=== PATIENT | male | born 1990 | race Caucasian/White ===

== ENCOUNTER → 2020-12-14 | Outpatient (CLI) | payer OTHER ==
--- NOTE | 2020-12-14 11:39 | REP ---
INDICATION: DIAG CELE MAMMO/RENETTA GYNECOMASTIA. History of gynecomastia. Breast tissue present since teenager. No lumps. Pain with pressure from using a rucksack. COMPARISON: No comparison breast imaging. TECHNIQUE: Bilateral CC and MLO) view(s) were taken. 3D tomography was carried out. Bilateral targeted retroareolar sonography is performed. FINDINGS: There is a pattern of fibroglandular tissue in the subareolar region of each breast quite mild in degree and symmetric consistent with gynecomastia. No mass is seen. No architectural distortion, micro calcific grouping, or worrisome skin changes appreciated on either side. Targeted sonography findings: Bilateral subareolar sonography is performed. There are bilateral subareolar hypoechoic areas consistent with gynecomastia. No sonographic evidence of mass. No abnormal could stick shadowing or other suspicious sonographic findings. IMPRESSION: BI-RADS category 2 benign findings. Symmetric mild gynecomastia pattern. This mammogram was interpreted with the aid of an FDA-approved computer-aided detection system. The patient states he had a clinical breast exam in September of 2020. The patient letter being requested is male letter M 2 . RECOMMENDATION: Clinical follow-up. <Electronically signed by Jeramy Higginbotham > 12/14/20 [id number]
== END ==
LOC: M WHC 09:57
PROVIDERS: ATTEND Physician Assistant
DX: N62 Hypertrophy of breast (principal)
CPT/HCPCS: 76642; 77066; G0279